=== PATIENT | male | born 1960 | race Caucasian/White ===

== ENCOUNTER → 2019-04-05 11:11 | Outpatient (CLI) | payer OTHER, MEDICAID, SELFPAY ==
--- NOTE | 2019-04-05 11:14 | DI.RAD.S_ITS ---
PROCEDURE: XR ANKLE LT MIN 3V INDICATIONS: L ANKLE SPRAIN TECHNIQUE: 3 views of the ankle were acquired. COMPARISON: [facility], CR, XR ANKLE RT MIN 3V, 04/05/2019, 11:21. FINDINGS: Bones: No fractures or dislocations. Ankle mortise is normally aligned. No suspicious bony lesions. Tibiotalar degenerative spurring. 1 mm calcific density projects in the medial aspect of the tibiotalar joint however only seen on one view. Technically cannot exclude small loose body Soft tissues: No tibiotalar joint effusion. Achilles tendon appears normal. Scattered vascular calcifications IMPRESSION: No fracture. If the patient's symptoms do not improve recommend followup radiographs in 10 days to assess for healing sclerosis/occult injury. Dictated by: Ren Berrios M.D. on 04/05/2019 at 12:21 Approved by: Ren Berrios M.D. on 04/05/2019 at 12:23
--- NOTE | 2019-04-05 11:14 | DI.RAD.S_ITS ---
PROCEDURE: XR ANKLE RT MIN 3V INDICATIONS: L ANKLE SPRAIN TECHNIQUE: 3 views of the ankle were acquired. COMPARISON: [facility], CR, XR ANKLE LT MIN 3V, 04/05/2019, 11:21. FINDINGS: Bones: No fractures or dislocations. Ankle mortise is normally aligned. No suspicious bony lesions. Soft tissues: No tibiotalar joint effusion. Achilles tendon appears normal. IMPRESSION: Negative right ankle Dictated by: Ren Berrios M.D. on 04/05/2019 at 12:19 Approved by: Ren Berrios M.D. on 04/05/2019 at 12:21
== END ==
PROVIDERS: Visit Provider Physician Assistant
DX: S93.402A Sprain of unspecified ligament of left ankle, initial encounter (principal)
CPT/HCPCS: 73610

== ENCOUNTER → 2019-04-22 10:35 | Outpatient (CLI) | payer OTHER, MEDICAID, SELFPAY ==
--- NOTE | 2019-04-22 | DI.CT.S_ITS ---
PROCEDURE: CT LE LT W CON INDICATIONS: Unspecified sprain of left foot, initial encounter TECHNIQUE: Noncontrast 1-1.5 mm axial sections acquired from above the tibiotalar joint to the bottom of the calcaneus, with coronal and sagittal reformats. COMPARISON: [facility] [place], CR, XR ANKLE 3+ VIEWS LEFT, 04/14/2019, 14:20. [facility] [place], CR, XR FOOT 1 OR 2 VIEWS LEFT, 04/14/2019, 14:43. FINDINGS: Image quality: Excellent. Bones: No fracture or focal osseous destruction is seen. There is mild first MTP degeneration. Marginal lucency is present at the first metatarsal head raising possibility of erosion although technically nonspecific. The hallux sesamoids appear grossly normal. There is anatomic alignment. Tibiotalar and midfoot degenerative spurring and subchondral sclerosis. Soft tissues: Scattered vascular calcifications incidentally noted. The visualized flexor and extensor tendons are unremarkable. There is mild hindfoot subcutaneous stranding/swelling. IMPRESSION: No fracture. If the patient's pain or other symptoms persist, consider further evaluation with MRI Diffuse degenerative changes as above. Dictated by: Ren Berrios M.D. on 04/22/2019 at 13:10 Approved by: Ren Berrios M.D. on 04/22/2019 at 13:15
== END ==
PROVIDERS: PCP Orthopaedic Surgery Foot and Ankle Surgery; Visit Provider Orthopaedic Surgery Foot and Ankle Surgery
DX: S93.602A Unspecified sprain of left foot, initial encounter (principal); M19.072 Primary osteoarthritis, left ankle and foot
CPT/HCPCS: 73700

== ENCOUNTER → 2019-06-30 08:34 | Outpatient (CLI) | payer OTHER, MEDICAID, SELFPAY ==
--- NOTE | 2019-06-30 | DI.MRI.S_ITS ---
PROCEDURE: MR ANKLE LT WO CON INDICATIONS: Stress fracture, left foot, initial encounter for TECHNIQUE: Noncontrast sagittal T1 spin echo and T2 fast spin echo with fat saturation, axial proton density fast spin echo and T2 fast spin echo with fat saturation, coronal T1 spin echo and T2 fast spin echo with fat saturation through the ankle/hindfoot. COMPARISON: [facility], CT, CT LE LT WO CON, 04/22/2019, 10:43. [facility], RG, ANKLE MIN 3VW (LT), 06/17/2019, 9:56. FINDINGS: Image quality: Excellent. Bones and joints: No discrete fracture line. There is marrow edema within the anterior tibial plafond as well as the talar head and neck, and cuboid. However this could be chronic given the associated degenerative changes, technically age-indeterminate. No hindfoot coalitions. No osteochondral injuries of the talar dome. Tibiotalar and subtalar joint effusions. Medial structures: The posterior tibialis, flexor digitorum longus, and flexor hallucis longus tendons are intact. Mild fluid adjacent to the posterior tibialis tendon in keeping with low-grade tenosynovitis. The posterior tibial neurovascular bundle appears normal within the tarsal tunnel, without extrinsic mass effect. The deep layer (anterior and posterior tibiotalar ligaments) and superficial layer (tibionavicular, tibiospring, and tibiocalcaneal ligaments) of the deltoid ligament appear normal. The spring ligament components (superomedial calcaneonavicular, medioplantar oblique calcaneonavicular, and inferoplantar longitudinal ligaments) are intact. Lateral structures: The anterior talofibular, calcaneofibular, and posterior talofibular ligaments all appear thickened with intrasubstance signal change and mild T2 hyperintensity. There is minimal adjacent soft tissue edema and this could represent a subacute or acute low-grade sprain. More superiorly, the anterior and posterior tibiofibular ligaments appear intact, as is the intermalleolar ligament. The tibiofibular syndesmosis is normal in width at 2 mm or less. The peroneus longus and brevis tendons demonstrate normal location and morphology. Adjacent bony peroneal tubercle and retrotrochlear prominence are normal in size. There is marked diffuse heterogeneous signal change within the sinus tarsi, with loss of the normal fat signal intensity and T2 hyperintense appearance. Anterior structures: The tibialis anterior, extensor hallucis longus, and extensor digitorum longus tendons appear intact. The dorsal talonavicular ligament appears intact. Posterior and plantar structures: Achilles tendon appears grossly intact. There is mild medial band plantar fasciitis. IMPRESSION: Sprain of the anterior talofibular, calcaneofibular and posterior talofibular ligaments. Marked signal change involving the sinus tarsi, suggesting sinus tarsi syndrome especially if there is clinical evidence of lateral instability. Tibiotalar and subtalar joint effusions. Mild medial band plantar fasciitis. Mild posterior tibialis tenosynovitis. Scattered areas of marrow edema throughout the hindfoot as detailed above. This is suspected to be chronic/reactive to degenerative changes however cannot exclude mild marrow contusion. No discrete fracture line identified. Dictated by: Ren Berrios M.D. on 06/30/2019 at 10:05 Approved by: Ren Berrios M.D. on 06/30/2019 at 10:13
== END ==
PROVIDERS: PCP Orthopaedic Surgery Foot and Ankle Surgery; Visit Provider Orthopaedic Surgery Foot and Ankle Surgery
DX: M84.375A Stress fracture, left foot, initial encounter for fracture (principal); S93.492A Sprain of other ligament of left ankle, initial encounter; S93.412A Sprain of calcaneofibular ligament of left ankle, initial encounter; M25.472 Effusion, left ankle; M72.2 Plantar fascial fibromatosis; M65.862 Other synovitis and tenosynovitis, left lower leg
CPT/HCPCS: 73721

== ENCOUNTER → 2019-08-01 10:27 | Outpatient (CLI) | payer OTHER, MEDICAID, SELFPAY ==
--- NOTE | 2019-08-01 10:29 | DI.RAD.S_ITS ---
PROCEDURE: XR FOOT RT MIN 3V INDICATIONS: R foot pain TECHNIQUE: 3 views of the foot were acquired. COMPARISON: None. FINDINGS: Bones: Moderate hallux valgus is seen. Osteoarthritic changes are noted in first MTP joint and first through fifth interphalangeal joints. No gross acute fractures or dislocations. No suspicious bony lesions. Soft tissues: No tibiotalar joint effusion. Achilles tendon appears normal. 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 No gross acute fracture or dislocation. No suspicious bony lesion. Dictated by: Geraldo Brock M.D. on 08/01/2019 at 11:07 Approved by: Geraldo Brock M.D. on 08/01/2019 at 11:09
== END ==
PROVIDERS: PCP Orthopaedic Surgery Foot and Ankle Surgery; Visit Provider Physician Assistant
DX: M79.671 Pain in right foot (principal); M20.11 Hallux valgus (acquired), right foot; M19.071 Primary osteoarthritis, right ankle and foot
CPT/HCPCS: 73630

== ENCOUNTER 2022-04-28 09:34 | Emergency (ER) | payer OTHER, SELFPAY ==
[2022-04-28 10:12] VITALS: BP 194/118; PULSE 84; RESP 18; TEMP 36.5; O2SAT 100; BMI 27.1
--- NOTE | 2022-04-28 10:19 | DI.RAD.S_ITS ---
PROCEDURE: XR SHOULDER LT MIN 2V INDICATIONS: Left shoulder injury TECHNIQUE: 3 views of the shoulder were acquired. COMPARISON: None. FINDINGS: Bones: No fractures or dislocations. No suspicious bony lesions. Visualized ribs appear intact. Soft tissues: No suspicious soft tissue calcifications. IMPRESSION: No visualized acute fracture or dislocation. However, if clinical concern and/or pain persist, short interval imaging followup in 7-10 days is recommended, as occult injury cannot be definitively excluded. Dictated by: April Odonnell M.D. on 04/28/2022 at 11:15 Approved by: April Odonnell M.D. on 04/28/2022 at 11:16
--- NOTE | 2022-04-28 10:19 | DI.RAD.S_ITS ---
PROCEDURE: XR LUMBAR SPINE 2-3V INDICATIONS: suspected back injury TECHNIQUE: 3 views of the lumbar spine were acquired. COMPARISON: None. FINDINGS: Bones: 5 [id number] vertebrae are present. There is grade 1 retrolisthesis of L4 on L5 measuring 6 mm with 5 mm retrolisthesis L5 on S1 as well as L3 on L4. Severe disc and foraminal narrowing are noted at L4-5 and L5-S1. No vertebral body compression fractures. No suspicious bony lesions. Soft tissues: Overlying bowel gas pattern is normal. No suspicious soft tissue calcifications. IMPRESSION: Degenerative changes most notable at L4-5, L5-S1. Dictated by: April Odonnell M.D. on 04/28/2022 at 11:16 Approved by: April Odonnell M.D. on 04/28/2022 at 11:17
[2022-04-28 11:50] VITALS: O2SAT 96
[2022-04-28 11:51] VITALS: BP 146/97; PULSE 82; O2SAT 99
[2022-04-28 12:00] VITALS: PULSE 87; O2SAT 99
[2022-04-28 12:30] VITALS: PULSE 81; O2SAT 98
[2022-04-28 13:00] VITALS: PULSE 86; O2SAT 98
--- NOTE | 2022-04-28 13:06 | ED.BACK ---
HPI - Back Pain/Injury <Amari Garcia PA-C - Last Filed: 04/28/22 20:12> General Chief Complaint: Back Pain/Injury Stated Complaint: Back and lt shoulder pain after fall Time Seen by Provider: 04/28/22 12:08 Source: patient History of Present Illness HPI Narrative: Patient is a 61-year-old male who presents to the emergency department for evaluation of low back pain and left shoulder pain. Patient explains that approximately 3 weeks ago he fell while at work pushing a shopping cart, stating that he slipped and fell on his left outstretched arm. He states that since that time he has been experiencing left shoulder pain that is exacerbated with movement and low back pain. Of note, patient denies trauma or injury elsewhere. Additionally, he denies hitting his head as a result of the fall. He denies fever, chills, chest pain, cough, shortness of breath, nausea, vomiting, diarrhea, constipation, abdominal pain, dysuria, hematuria, numbness and tingling in the upper lower extremities, or any other concerning symptoms. No further concerns were voiced at this time. Related Data Previous Rx's Medication Instructions Recorded cyclobenzaprine 7.5 mg tablet 7.5 mg PO TID PRN muscle spasm 10 04/28/22 days #30 tabs Allergies Allergy/AdvReac Type Severity Reaction Status Date / Time No Known Drug Allergies Allergy Verified 08/02/19 11:03 Review of Systems <Amari Garcia PA-C - Last Filed: 04/28/22 20:12> Constitutional Constitutional: Denies chills, Denies fatigue, Denies fever(s), Denies frequent falls, Denies lethargy and Denies weakness ENT Ears, Nose, Mouth, and Throat: Denies neck pain Cardiovascular Cardiovascular: Denies chest pain, Denies irregular heart rhythm, Denies lightheadedness, Denies palpitations, Denies dyspnea, Denies dyspnea on exertion and Denies orthopnea Respiratory Respiratory: Denies dyspnea and Denies dyspnea on exertion Gastrointestinal Gastrointestinal: Denies abdominal pain, Denies change in bowel habits, Denies diarrhea, Denies nausea and Denies vomiting Genitourinary Genitourinary: Denies hematuria, Denies flank pain, Denies urinary incontinence and Denies urinary urgency Musculoskeletal Musculoskeletal: Reports back pain, Reports arthralgias (Left shoulder), Denies joint swelling, Denies muscle weakness, Denies neck pain, Denies numbness and Denies tingling Integumentary/Breasts Skin/Breast: Denies pruritus, Denies erythema, Denies rash and Denies wounds Neurologic Neurologic: Denies frequent falls, Denies numbness, Denies tingling and Denies weakness Endocrine Endocrine: Denies fatigue and Denies palpitations Patient History <Amari Garcia PA-C - Last Filed: 04/28/22 20:12> Social History Smoking Status: Never smoker Smokeless tobacco user: chewing tobacco Smoking Status: Never smoker tobacco type: smokeless tobacco Substance Use Type: marijuana Exam <Amari Garcia PA-C - Last Filed: 04/28/22 20:12> Narrative Exam Narrative: GENERAL: 61 year old patient appears stated age. Well-developed patient, in no acute distress. HEAD: Atraumatic. Normocephalic. EYES: Pupils equal round and reactive. Extraocular motions intact. No scleral icterus. No injection or drainage. ENT: Nose without bleeding, purulent drainage. Throat without erythema, tonsillar hypertrophy or exudate. Airway patent. NECK: Trachea midline. Non tender CARDIOVASCULAR: Regular rate and rhythm without murmurs, gallops, or rubs. RESPIRATORY: Clear to auscultation. Breath sounds equal bilaterally. No wheezes, rales, or rhonchi. GASTROINTESTINAL: Abdomen soft, non-tender, nondistended. EXTREMITIES: No edema or gross deformity. Tenderness to palpation appreciated generally about the left shoulder with no significant overlying ecchymosis or erythema. Tenderness to palpation appreciated throughout the bilateral paraspinal muscles in the area of L4-L5 and L5-S1. No crepitance appreciated when palpating the back. Good sensation light touch appreciated throughout the bilateral upper and lower extremities. Gross motor function intact throughout the bilateral upper and lower extremities. BACK: Nontender without deformity or crepitance. No flank tenderness. NEURO: AOx3. SKIN: No rash or erythema of visible areas Initial Vital Signs Initial Vital Signs: Vital Signs Temperature 97.7 F 04/28/22 10:12 Pulse Rate 84 04/28/22 10:12 Respiratory Rate 18 04/28/22 10:12 Blood Pressure 194/118 H 06/13/22 10:12 Pulse Oximetry 100 04/28/22 10:12 Oxygen Delivery Method 04/28/22 10:12 <Yeny Kim DO - Last Filed: 05/04/22 12:51> Initial Vital Signs Initial Vital Signs: Vital Signs Temperature 97.7 F 04/28/22 10:12 Pulse Rate 84 04/28/22 10:12 Respiratory Rate 18 04/28/22 10:12 Blood Pressure 194/118 H 04/28/22 10:12 Pulse Oximetry 100 04/28/22 10:12 Oxygen Delivery Method 04/28/22 10:12 Course <Amari Garcia PA-C - Last Filed: 04/28/22 20:12> Course Course Narrative: X-ray of left shoulder and lumbar spine obtained. No acute abnormalities discovered. Orders Ordered: ED Orders 04/28/22 10:19 XR lumbar spine 2-3V Stat XR shoulder LT min 2V Stat Vital Signs Vital signs: Vital Signs - 8 hr 04/28/22 12:30 04/28/22 13:00 Pulse Rate 81 86 Pulse Oximetry 98 98 <Yeny Kim DO - Last Filed: 05/04/22 12:51> Orders Ordered: ED Orders 04/28/22 10:19 XR lumbar spine 2-3V Stat XR shoulder LT min 2V Stat Vital Signs Vital signs: Vital Signs - 8 hr 04/28/22 12:30 04/28/22 13:00 Pulse Rate 81 86 Pulse Oximetry 98 98 MDM - Back Pain/Injury <Amari Garcia PA-C - Last Filed: 04/28/22 20:12> Imaging Data Extremity x-ray #1: Radiologist's Impression: PROCEDURE:? XR SHOULDER LT MIN 2V ? INDICATIONS:? Left shoulder injury ? TECHNIQUE:? 3 views of the shoulder were acquired.? ? COMPARISON:? None. ? FINDINGS:? ? Bones:? No fractures or dislocations.? No suspicious bony lesions.? Visualized ribs appear intact.? ? Soft tissues:? No suspicious soft tissue calcifications.? ? IMPRESSION:? No visualized acute fracture or dislocation. However, if clinical concern and/or pain persist, short interval imaging followup in 7-10 days is recommended, as occult injury cannot be definitively excluded. ? ? Dictated by: April Odonnell M.D. on 04/28/2022 at 11:15 ? ? Approved by: April Odonnell M.D. on 04/28/2022 at 11:16 Lumbar spine x-ray: Radiologist's Impression: PROCEDURE:? XR LUMBAR SPINE 2-3V ? INDICATIONS:? suspected back injury ? TECHNIQUE:? 3 views of the lumbar spine were acquired.? ? COMPARISON:? None. ? FINDINGS:? ? Bones:? 5 [id number] vertebrae are present.? There is grade 1 retrolisthesis of L4 on L5 measuring 6 mm with 5 mm retrolisthesis L5 on S1 as well as L3 on L4.? Severe disc and foraminal narrowing are noted at L4-5 and L5-S1.? No vertebral body compression fractures.? No suspicious bony lesions.? ? Soft tissues:? Overlying bowel gas pattern is normal.? No suspicious soft tissue calcifications.? ? ? IMPRESSION:? Degenerative changes most notable at L4-5, L5-S1. ? ? Dictated by: April Odonnell M.D. on 04/28/2022 at 11:16 ? ? Approved by: April Odonnell M.D. on 04/28/2022 at 11:17 ? MDM Narrative Medical decision making narrative: Differential diagnosis to consider but not limited to fracture versus dislocation versus sprain versus strain. Discussed results of x-ray imaging with patient and informed him that no acute bony abnormality was identified. I did discuss the findings degenerative changes in the lumbar spine. I informed the patient I would be setting up a prescription for muscle relaxer to help alleviate his discomfort. Additionally, I informed the patient of be setting up a referral for orthopedic follow-up. Patient expresses understanding and agrees to plan. Strict return precautions were discussed prior to discharge. Discharge Plan Departure Patient Disposition: Home Clinical Impression: Left shoulder pain, Low back pain Instructions: DI for Low Back Pain Activity Restrictions/Additional Instructions: *You have been diagnosed with left shoulder pain, low back pain *What to do: *Please continue to take your regular medications as directed. [X] New medication prescriptions sent to your pharmacy: [facility] [ ] New medication written as a paper prescription [ ] No new medications given You were evaluated in the emergency department today for left shoulder pain and low back pain. X-ray imaging obtained in the emergency department today did not show signs of acute bony abnormalities such as fracture or dislocation. There were degenerative changes noted in your lumbar spine however. I have set up a referral for orthopedic follow-up, they should be reaching out to you to schedule an appointment. Additionally, I have sent a prescription to your preferred pharmacy for muscle relaxer medications to help alleviate discomfort. Please follow-up with the primary care provider within the next few days for further evaluation and management. Please do not hesitate to return to the emergency department if you experience worsening pain, fever, loss of sensation in the upper extremities, or any other concerning symptoms. *Please follow up with your primary care provider in 2-3 days, call for an appointment. Let them know you were seen in the Emergency Department and that we ask that you be seen in follow up. We will electronically transmit a record of today's note if your PCP is in our system *If you do not have a primary care provider please contact the [facility] Resource line at [phone]. They will ask some questions about your medical history and help get you set up with a doctor in the community. *Return to Emergency Department if you should have any new, worsening or concerning symptoms, such as fever greater than 101 F, shaking chills, worsening pain, persistent vomiting or other bothersome symptoms. Prescriptions: New cyclobenzaprine 7.5 mg tablet 7.5 mg PO TID PRN (Reason: muscle spasm) 10 Days Qty: 30 0RF Referrals: Chasity Verdugo MD [Primary Care Provider] - Josh Ennis MD [Physician] - 5-7 days Visit Report Forms: Patient Portal/API <Yeny Kim DO - Last Filed: 05/04/22 12:51> Cosign ED Attending Lindaature Attestation: I was immediately available in the department for consultation. Documentation has been reviewed.
== END 2022-04-28 13:19 | disposition home or self-care (01) ==
PROVIDERS: Emergency Provider Physician Assistant; PCP Orthopaedic Surgery Foot and Ankle Surgery
DX: M25.512 Pain in left shoulder (principal); M54.50 Low back pain, unspecified; W19.XXXA Unspecified fall, initial encounter; Y99.0 Civilian activity done for income or pay
CPT/HCPCS: 72100; 73030; 99281; 99283

== ENCOUNTER → 2022-05-21 13:41 | Outpatient (CLI) | payer OTHER, SELFPAY ==
--- NOTE | 2022-05-21 13:46 | DI.MRI.S_ITS ---
PROCEDURE: MR SHOULDER LT WO CON INDICATIONS: Left rotator cuff tear TECHNIQUE: Noncontrast oblique coronal T2 fast spin echo with fat saturation, oblique sagittal T1 spin echo and T2 fast spin echo with fat saturation, axial T1 spin echo and T2 fast spin echo with fat saturation through the shoulder. COMPARISON: [facility], CR, XR SHOULDER LT MIN 2V, 04/28/2022, 10:28. FINDINGS: Image quality: Excellent. Rotator cuff: There is partial-thickness tear of the distal supraspinatus and infraspinatus tendons and moderate tendinosis. There is moderate tendinosis of the subscapularis tendon. Sagittal images demonstrate no rotator cuff muscle atrophy. Bones and bursae: No fractures. There is bone marrow edema in the distal clavicle and acromion, probably secondary to contusion or reactive edema. Severe acromioclavicular and moderate glenohumeral joint degeneration. The acromion demonstrates conventional anatomy, without an os acromiale. There is a small amount of subcoracoid bursal fluid suggesting mild bursitis. Capsule and soft tissues: Degenerative fraying of the anterior and inferior labrum The long head of the biceps tendon demonstrates normal location and morphology. The rotator interval appears normal, without fibrosis. The coracohumeral ligament is normal in thickness. IMPRESSION: 1. Partial-thickness tear and moderate tendinosis of the distal supraspinatus and infraspinatus tendons. 2. Moderate tendinosis of the subscapularis tendon. 3. Severe acromioclavicular joint degeneration. There is marrow edema in the distal clavicle and acromion, either secondary to bone contusions or reactive edema from arthritic change. 4. Suspect mild subcoracoid bursitis. 5. Degenerative anterior and inferior labral fraying. Dictated by: Joe Nava M.D. on 05/21/2022 at 17:37 Approved by: Joe Nava M.D. on 05/22/2022 at 10:21
--- NOTE | 2022-05-21 13:46 | DI.MRI.S_ITS ---
PROCEDURE: MR LUMBAR SPINE WO CON INDICATIONS: Low back pain, unspecified TECHNIQUE: Noncontrast sagittal T1 spin echo and T2 fast echo, sagittal STIR, and T2 fast spin echo through the lumbar spine. In cases with scoliosis, additional coronal T2 fast spin echo may be performed. COMPARISON: [facility], CR, XR LUMBAR SPINE 2-3V, 04/28/2022, 10:28. [facility] [place], CR, XR LUMBAR SPINE WITH OBLIQUES, 05/06/2022, 8:30. FINDINGS: Image quality: Excellent. Alignment and Curvature: There is normal bony alignment. Bone Marrow: Modic type 2 reactive endplate changes noted adjacent to the L3-L4, L4-L5 and L5-S1 discs. Small Schmorl's nodes noted in the superior endplate of the L1 and L2 vertebral bodies. Small Schmorl's nodes noted in the inferior endplates of the T12, L1 and L2 vertebral bodies. No acute vertebral body compression fractures. Spinal Cord: Conus medullaris terminates at the L1 level. Visualized cord demonstrates normal signal and size. Paraspinous Soft Tissues: No paravertebral masses. T12-L1: Loss of disc signal. No central stenosis. No neural foraminal narrowing. No neural compression. L1-L2: Loss of disc signal. Mild, diffuse disc bulge. No central stenosis. Mild bilateral neural foraminal narrowing. No neural compression. L2-L3: Loss of disc signal. Mild, diffuse disc bulge. Mild narrowing of the central canal. [id number] right and mild left neural foraminal narrowing. No neural compression. L3-L4: Loss of disc signal. Mild, diffuse disc bulge. Mild bilateral facet hypertrophy. Mild to moderate narrowing of the central canal. Moderate right and moderate to severe left neural foraminal narrowing with slight compression of the exiting left L4 nerve root. Fissures noted in the annulus. L4-L5: Loss of disc signal and height. Mild, diffuse disc bulge. Mild bilateral facet hypertrophy. No central stenosis. Moderate bilateral neural foraminal narrowing. No neural compression. L5-S1: Loss of disc signal and height. Mild, diffuse disc bulge. Moderate bilateral facet hypertrophy. No central stenosis. Moderate bilateral neural foraminal narrowing. No neural compression. IMPRESSION: 1. Multilevel degenerative disc disease. 2. Multilevel facet arthropathy. 3. No severe central canal narrowing. 4. Moderate to severe left L3-L4 neural foraminal narrowing with slight compression of the exiting left L4 nerve root. Dictated by: Ary Kc MD, PhD on 05/21/2022 at 17:48 Approved by: Ary Kc MD, PhD on 05/21/2022 at 17:52
== END ==
PROVIDERS: Referring Provider Physical Medicine & Rehabilitation Pain Medicine; Visit Provider Physical Medicine & Rehabilitation Pain Medicine
DX: S46.012A Strain of muscle(s) and tendon(s) of the rotator cuff of left shoulder, initial encounter (principal); M19.012 Primary osteoarthritis, left shoulder; M54.50 Low back pain, unspecified; M51.36 Other intervertebral disc degeneration, lumbar region; M51.37 Other intervertebral disc degeneration, lumbosacral region; M47.816 Spondylosis without myelopathy or radiculopathy, lumbar region; M47.817 Spondylosis without myelopathy or radiculopathy, lumbosacral region; M48.061 Spinal stenosis, lumbar region without neurogenic claudication; X58.XXXA Exposure to other specified factors, initial encounter
CPT/HCPCS: 72148; 73221

== ENCOUNTER 2024-04-06 15:05 | Emergency (ER) | payer OTHER, MEDICAID, SELFPAY ==
[2024-04-06 15:20] VITALS: BP 177/103; PULSE 80; RESP 12; TEMP 36.9; O2SAT 98; BMI 28.4
--- NOTE | 2024-04-06 15:24 | DI.RAD.S_ITS ---
PROCEDURE: XR SHOULDER RT MIN 2V INDICATIONS: injury TECHNIQUE: 3 views of the shoulder were acquired. COMPARISON: None. FINDINGS: Bones: No fractures or dislocations. Moderate acromioclavicular joint osteoarthritis is seen. No suspicious bony lesions. Visualized ribs appear intact. Soft tissues: No suspicious soft tissue calcifications. IMPRESSION: No shoulder fracture or dislocation. Moderate acromioclavicular joint osteoarthritis. Dictated by: Geraldo Brock M.D. on 04/06/2024 at 16:08 Approved by: Geraldo Brock M.D. on 04/06/2024 at 16:08
--- NOTE | 2024-04-06 16:33 | ED_ITS ---
HPI - Extremity Injury (Upper) <Olivia Hebert PA-C - Last Filed: 04/06/24 20:19> General Chief Complaint: Extremity Injury, Upper Stated Complaint: R Shoulder Pain Time Seen by Provider: 04/06/24 16:33 Source: patient Mode of arrival: Family Vehicle History of Present Illness HPI narrative: 63-year-old male with a history of left shoulder rotator cuff repair presents with concern for severe right shoulder pain with reduced range of motion. Patient states that 4 days ago he was pulling the cord on a gas powered blower at home, he says the cord was extremely loose unexpectedly and as he yanked back on it there was no resistance and then all of a sudden there was a lot of resistance. Said he felt a popping and pulling sensation in the front of his shoulder and then as if something was traveling down his arm towards his elbow and then a vibrating sensation just above his elbow. Since that time he has had significant pain with any movement of his arm shoulder or any lifting activity. He is able to move his wrist normally and can move his elbow but has a lot of pain in the biceps the front of his shoulder and behind his shoulder near his scapula in the back. He states this feels very similar to when he injured his rotator cuff on his left shoulder. He has tried [id number] medications rest and ice at home but the pain has gradually been worsening over the last 4 days and his mobility has not improved at all so he came in for further evaluation. He denies any other complaints or concerns Related Data Previous Rx's Medication Instructions Recorded baclofen 10 mg tablet 10 mg PO TID 7 days #21 tabs 04/06/24 Allergies Allergy/AdvReac Type Severity Reaction Status Date / Time No Known Drug Allergies Allergy Verified 08/02/19 11:03 Review of Systems <Olivia Hebert PA-C - Last Filed: 04/06/24 20:19> Review of Systems Narrative: See HPI Patient History <Olivia Hebert PA-C - Last Filed: 04/06/24 20:19> Social History Smoking Status: Never smoker Smokeless tobacco user: chewing tobacco Smoking Status: Never smoker tobacco type: smokeless tobacco alcohol intake frequency: 0-2 drinks per day Substance Use Type: marijuana Exam <Olivia Hebert PA-C - Last Filed: 04/06/24 20:19> Narrative Exam Narrative: GENERAL: 63 year old patient appears stated age. Well-developed patient, in mild distress. HEAD: Atraumatic. Normocephalic. EYES: Pupils equal round and reactive. Extraocular motions intact. No scleral icterus. No injection or drainage. ENT: Nose without bleeding, purulent drainage. Airway patent. NECK: Trachea midline. CARDIOVASCULAR: Regular rate and rhythm without murmurs, gallops, or rubs. RESPIRATORY: Clear to auscultation. Breath sounds equal bilaterally. No wheezes, rales, or rhonchi. EXTREMITIES: No edema or joint tenderness. BACK: Patient is very tender over the supraspinatus infraspinatus and teres major/minor; he also has tenderness over his right biceps and anterior deltoid. Significant tenderness over the biceps tendon insertion. Tenderness over the lateral pectoralis muscle, with muscle spasming. Comparison of bilateral arms with flexion appears equal on both sides. No obvious biceps tendon rupture. Strong pulses bilaterally radial, patient is able to supinate and pronate with some pain but flexion at the elbow, abduction and extension of the shoulder are significantly reduced 2nd to pain. Passive motion is also painful but less so positive scarf sign. Nontender without deformity or crepitance. No flank tenderness. NEURO: AOx3. SKIN: No rash or erythema of visible areas Initial Vital Signs Initial Vital Signs: Vital Signs Temperature 98.5 F 04/06/24 15:20 Pulse Rate 80 04/06/24 15:20 Respiratory Rate 12 04/06/24 15:20 Blood Pressure 177/103 H 04/06/24 15:20 Pulse Oximetry 98 04/06/24 15:20 Oxygen Delivery Method Room Air 04/06/24 15:20 <Yeny Kim DO - Last Filed: 04/09/24 04:47> Initial Vital Signs Initial Vital Signs: Vital Signs Temperature 98.5 F 04/06/24 15:20 Pulse Rate 80 04/06/24 15:20 Respiratory Rate 12 04/06/24 15:20 Blood Pressure 177/103 H 04/06/24 15:20 Pulse Oximetry 98 04/06/24 15:20 Oxygen Delivery Method Room Air 04/06/24 15:20 Course <Olivia Hebert PA-C - Last Filed: 04/06/24 20:19> Orders Ordered: Discontinued Medications Acetaminophen (Acetaminophen 325 Mg Tablet) 975 mg PO NOW ONE Stop: 04/06/24 17:08 Last Admin: 04/06/24 17:16 Dose: 975 mg Documented By: IAN Ketorolac Tromethamine (Ketorolac 30 Mg/Ml Vial) 30 mg IM NOW ONE Stop: 04/06/24 17:08 Last Admin: 04/06/24 17:15 Dose: 30 mg Documented By: IAN Vital Signs Vital signs: Vital Signs - 8 hr 04/06/24 15:20 04/06/24 17:12 04/06/24 18:01 Temperature 98.5 F 98 F Pulse Rate 80 63 77 Respiratory Rate 12 16 18 Blood Pressure 177/103 H 128/69 175/106 H Pulse Oximetry 98 96 100 Oxygen Delivery Method Room Air Room Air <Yeny Kim DO - Last Filed: 04/09/24 04:47> Orders Ordered: Discontinued Medications Acetaminophen (Acetaminophen 325 Mg Tablet) 975 mg PO NOW ONE Stop: 04/06/24 17:08 Last Admin: 04/06/24 17:16 Dose: 975 mg Documented By: IAN Ketorolac Tromethamine (Ketorolac 30 Mg/Ml Vial) 30 mg IM NOW ONE Stop: 04/06/24 17:08 Last Admin: 04/06/24 17:15 Dose: 30 mg Documented By: IAN Vital Signs Vital signs: Vital Signs - 8 hr 04/06/24 15:20 04/06/24 17:12 04/06/24 18:01 Temperature 98.5 F 98 F Pulse Rate 80 63 77 Respiratory Rate 12 16 18 Blood Pressure 177/103 H 128/69 175/106 H Pulse Oximetry 98 96 100 Oxygen Delivery Method Room Air Room Air MDM - Extremity Injury (Upper) <Olivia Hebert PA-C - Last Filed: 04/06/24 20:19> Differential Diagnosis Differential diagnosis: Likely dislocation of shoulder and other (Shoulder sprain, rotator cuff injury) Medical Records Attestation: I reviewed the patient's medical records. Imaging Data Extremity x-ray #1: My Impression: Agree with Radiology interpretation Radiologist's Impression: [address] [address] XRay Report Signed Patient: Francisco Galeano MR#: [id number] : 1960 Acct:[id number] Age/Sex: 63 / M Date of Service: 04/06/24 Loc: ED Accession Number: [id number] Procedure: XR shoulder RT min 2V Ordering Provider: Yeny Kim D.O. PROCEDURE: XR SHOULDER RT MIN 2V INDICATIONS: injury TECHNIQUE: 3 views of the shoulder were acquired. COMPARISON: None. FINDINGS: Bones: No fractures or dislocations. Moderate acromioclavicular joint osteoarthritis is seen. No suspicious bony lesions. Visualized ribs appear intact. Soft tissues: No suspicious soft tissue calcifications. IMPRESSION: No shoulder fracture or dislocation. Moderate acromioclavicular joint osteoarthritis. Dictated by: Geraldo Brock M.D. on 04/06/2024 at 16:08 Approved by: Geraldo Brock M.D. on 04/06/2024 at 16:08 [facility] Narrative Medical decision making narrative: 63-year-old male presenting with concern for right shoulder injury 4 days ago gradually worsening, exam is most consistent with a rotator cuff injury, possibly biceps tendon involvement. X-rays negative for abnormality except for acromioclavicular arthritic changes. Patient is advised to follow up closely with Orthopedics, he has previously seen Dr. Ennis, today's on-call orthopedic doctor Kalpana is also included in patient's paperwork. Short course prescription of pain medication, muscle relaxer as patient has some significantly tight muscles around the shoulder. Sling placed today as well. Labs were not obtained I have low suspicion for cardiovascular infectious etiology. Return precautions provided, follow-up plan discussed, all questions answered. Discharge Plan Departure Patient Disposition: Home Clinical Impression: Muscle spasm of shoulder region Rotator cuff (capsule) sprain Qualifiers: Encounter type: initial encounter Laterality: right Qualified Code(s): S43.421A - Sprain of right rotator cuff capsule, initial encounter Activity Restrictions/Additional Instructions: *You have been diagnosed with [rotator cuff injury/shoulder sprain] *What to do: *Please continue to take your regular medications as directed. [2 ] New medication prescriptions sent to your pharmacy: [Baclofen, oxycodone] [ ] New medication written as a paper prescription [ ] No new medications given *Please follow up with your primary care provider in 2-3 days, call for an a ppointment. Let them know you were seen in the Emergency Department and that we ask that you be seen in follow up. We will electronically transmit a record of today's note if your PCP is in our system. You injured her right shoulder 4 days ago when pulling on power cord gas powered equipment. Based on your exam today you have a rotator cuff injury, I am somewhat suspicious he may have also injured her biceps tendon/muscle however it does not appear to be a biceps tendon rupture/detachment based on exam. The x-ray of your shoulder looked okay you do have some joint osteoarthritis wear your shoulder connects with the end of your collar bone at the top of her shoulder. This does not explain all of your symptoms and pain, but it could be contributing. I would like you to follow up closely with Orthopedics, have included the name and contact info of our on-call doctor of the day today but you have also seen Dr. Ennis in the past and it may make sense to go back to him since he is already familiar with you. I prescribed a muscle relaxer as you have some muscle spasming going on around her shoulder and a few days of stronger pain medicine but you should only use this if needed and Tylenol and ibuprofen is not enough. Please be cautious about taking this and the muscle relaxer together and about operating any equipment or driving after taking these. We placed you in a sling today I recommend you use this the majority of the time when you are up and about as it should provide some good support for your arm and help her muscles to relax. I hope you feel better soon. *If you do not have a primary care provider please contact the [facility] Resource line at [phone]. They will ask some questions about your medical history and help get you set up with a doctor in the community. *Return to Emergency Department if you should have any new, worsening or concerning symptoms, such as [fever greater than 101 F, shaking chills, worsening pain, persistent vomiting or other bothersome symptoms] Prescriptions: New baclofen 10 mg tablet 10 mg PO TID 7 Days Qty: 21 0RF Referrals: Gallo Acuna MD [Physician] - Josh Ennis MD [Physician] - Stand Alone Forms: Patient Portal/API ED Sign-out <Yeny C Mank, DO - Last Filed: 04/09/24 04:47> Cosign ED Attending Lindaature Attestation: I was immediately available in the department for consultation.
[2024-04-06 17:12] VITALS: BP 128/69; PULSE 63; RESP 16; TEMP 36.6; O2SAT 96
[2024-04-06] MEDS: KETOROLAC 30 MG/ML VIAL IM (17:15)
[2024-04-06] MEDS: ACETAMINOPHEN 325 MG TABLET 975 MG PO (17:16)
[2024-04-06 18:01] VITALS: BP 175/106; PULSE 77; RESP 18; O2SAT 100
== END 2024-04-06 18:02 | disposition home or self-care (01) ==
PROVIDERS: Emergency Provider Student in an Organized Health Care Education/Training Program
DX: S43.421A Sprain of right rotator cuff capsule, initial encounter (principal); X50.0XXA Overexertion from strenuous movement or load, initial encounter; M62.838 Other muscle spasm
CPT/HCPCS: 73030; 96372; 99283; 99284; J1885

== ENCOUNTER → 2024-05-24 15:27 | Outpatient (CLI) | payer OTHER, MEDICAID, SELFPAY ==
--- NOTE | 2024-05-24 | DI.MRI.S_ITS ---
PROCEDURE: MR SHOULDER RT WO CON INDICATIONS: RIGHT SHOULDER PAIN TECHNIQUE: Noncontrast oblique coronal T2 fast spin echo with fat saturation, oblique sagittal T1 spin echo and T2 fast spin echo with fat saturation, axial T1 spin echo and T2 fast spin echo with fat saturation through the shoulder. COMPARISON: [facility], MR, MR SHOULDER LT WO CON, 05/21/2022, 14:57. FINDINGS: Image quality: Excellent. Rotator cuff: There is full-thickness rupture involving distal supraspinatus with up to 3.3 cm medial retraction of torn tendon fibers to the level of acromion. Low-grade articular surface partial-thickness tear involving distal infraspinatus at its insertion on the humeral head is seen extending to musculotendinous junction. Low-grade partial-thickness tear involving superior to mid fibers of distal subscapularis. No full-thickness rotator cuff tendon rupture. Sagittal images demonstrate [id number] supraspinatus muscle atrophy. Bones and bursae: Moderate acromioclavicular joint osteoarthritic changes are seen with joint space narrowing and prominent downward osteophyte formation depressing the musculotendinous junction of supraspinatus. Type 1 acromion, without an os acromiale. Moderate joint effusion and subacromial subdeltoid bursal fluid is seen, no loose bodies. Capsule and soft tissues: Labrum is grossly intact. The long head of the biceps tendon appears thickened intra-articularly extending to its proximal insertion.. The rotator interval appears normal, without fibrosis. The coracohumeral ligament is normal in thickness. IMPRESSION: 1. Full-thickness rupture involving supraspinatus at its insertion on the humeral head with up to 3.3 cm medial retraction of torn tendon fibers to the level of acromion. Low-grade articular surface partial-thickness tear involving distal infraspinatus extending to musculotendinous junction. Low-grade partial-thickness tear involving superior fibers of distal subscapularis. Mild to moderate supraspinatus muscle atrophy. 2. Moderate acromioclavicular joint osteoarthritis. No fracture or dislocation. Moderate joint effusion and subacromial subdeltoid bursal fluid, no loose bodies. 3. No evidence of focal labral tear. 4. Tendinosis and low-grade intrasubstance partial-thickness tear involving proximal intra-articular portion of long head of biceps. Dictated by: Geraldo Brock M.D. on 05/24/2024 at 21:16 Approved by: Geraldo Brock M.D. on 05/24/2024 at 21:34
== END ==
PROVIDERS: Referring Provider Physician Assistant; Visit Provider Physician Assistant
DX: M75.121 Complete rotator cuff tear or rupture of right shoulder, not specified as traumatic (principal); M19.011 Primary osteoarthritis, right shoulder; S46.111A Strain of muscle, fascia and tendon of long head of biceps, right arm, initial encounter
CPT/HCPCS: 73221

== ENCOUNTER → 2024-11-03 11:01 | Outpatient (CLI) | payer OTHER, SELFPAY ==
--- NOTE | 2024-11-03 11:03 | DI.MRI.S_ITS ---
PROCEDURE: MR SHOULDER LT WO CON INDICATIONS: Strain of other muscles, fascia and tendons at amanda TECHNIQUE: Noncontrast oblique coronal T2 fast spin echo with fat saturation, oblique sagittal T1 spin echo and T2 fast spin echo with fat saturation, axial T1 spin echo and T2 fast spin echo with fat saturation through the shoulder. COMPARISON: [facility], MR, MR SHOULDER RT WO CON, 05/24/2024, 15:35. FINDINGS: Image quality: Excellent. Rotator cuff: Status post supraspinatus tendon repair. There is increased T2 hyperintensity within the insertions of the supraspinatus, subscapularis and infraspinatus musculature consistent with tendinopathy. Focal full-thickness tear through the distal subscapularis insertion. Otherwise, the supraspinatus, infraspinatus, and subscapularis tendons appear intact throughout. Sagittal images demonstrate no significant muscle atrophy. Bones and bursae: No bone marrow contusions or fractures. Moderate acromioclavicular joint degeneration with inferior marginal osteophytes causing mass effect on the supraspinatus. The acromion demonstrates conventional anatomy, without an os acromiale. Small volume subcoracoid bursal fluid is present. Capsule and soft tissues: Labrum appears intact. The long head of the biceps tendon demonstrates normal location and morphology. The rotator interval appears normal, without fibrosis. The coracohumeral ligament is normal in thickness. IMPRESSION: 1. Status post tendon repair with diffuse rotator cuff tendinopathy and focal full thickness tear of the distal subscapularis insertion. 2. Subcoracoid bursal effusion. Dictated by: Fahad Huitron M.D. on 11/03/2024 at 18:07 Approved by: Fahad Huitron M.D. on 11/03/2024 at 18:15
== END ==
LOC: MRI 11:02
PROVIDERS: Referring Provider Orthopaedic Surgery; Visit Provider Orthopaedic Surgery
DX: S46.812A Strain of other muscles, fascia and tendons at shoulder and upper arm level, left arm, initial encounter (principal); M25.412 Effusion, left shoulder; M19.012 Primary osteoarthritis, left shoulder
CPT/HCPCS: 73221

== ENCOUNTER → 2025-03-03 08:49 | Outpatient (CLI) | payer OTHER, SELFPAY ==
--- NOTE | 2025-03-03 08:51 | DI.MRI.S_ITS ---
PROCEDURE: MR LUMBAR SPINE WO CON INDICATIONS: PERSISTENT LUMBAR PAIN/ASSESS STENOSIS, LBP TECHNIQUE: Noncontrast sagittal T1 spin echo and T2 fast echo, sagittal STIR, and T2 fast spin echo through the lumbar spine. In cases with scoliosis, additional coronal T2 fast spin echo may be performed. COMPARISON: [facility], MR, MR LUMBAR SPINE WO CON, 05/21/2022, 14:31. FINDINGS: Image quality: Excellent. Alignment and Curvature: There is normal bony alignment. Bone Marrow: Modic type 2 changes associated with prominent Schmorl's nodes at L1-2 and T12-L1. Modic type 2 changes at L4-5 and L5-S1. Modic type 1 changes across prominent Schmorl's nodes at L2-3. Hemangioma in the T11 vertebral body. Spinal Cord: Conus medullaris terminates at the L1 level. Visualized cord demonstrates normal signal and size. Paraspinous Soft Tissues: No paravertebral masses. T12-L1: Disc desiccation, moderate disc height loss. L1-L2: Asymmetric right disc bulge, bilateral facet hypertrophy and ligamentum flavum hypertrophy. There is moderate right neural foraminal narrowing . L2-L3: Asymmetric right foraminal and extraforaminal disc bulge. Facet hypertrophy, ligamentum flavum hypertrophy. Moderate right neural foraminal narrowing. Superimposed left foraminal extrusion without significant foraminal narrowing. L3-L4: Broad-based disc bulge, facet hypertrophy. Mild spinal canal narrowing. Moderate left and severe right neural foraminal narrowing. L4-L5: Broad-based disc bulge, facet hypertrophy. Severe bilateral neural foraminal narrowing. L5-S1: Broad-based disc bulge, facet hypertrophy. Severe bilateral neural foraminal narrowing. IMPRESSION: Moderate to severe, multilevel degenerative disc disease and diffuse facet arthrosis. Findings have progressed since 2021. Of note: Severe neural foraminal narrowing at L3-4, L4-5 and L5-S1. Mild spinal canal narrowing at L3-4. Dictated by: Barrie Mccollum M.D. on 03/03/2025 at 10:25 Approved by: Barrie Mccollum M.D. on 03/03/2025 at 10:34
== END ==
PROVIDERS: PCP Nurse Practitioner Family; Referring Provider Physician Assistant Medical; Visit Provider Physician Assistant Medical
DX: M51.369 Other intervertebral disc degeneration, lumbar region without mention of lumbar back pain or lower extremity pain (principal); M48.061 Spinal stenosis, lumbar region without neurogenic claudication; M47.816 Spondylosis without myelopathy or radiculopathy, lumbar region; M51.379 Other intervertebral disc degeneration, lumbosacral region without mention of lumbar back pain or lower extremity pain; M48.07 Spinal stenosis, lumbosacral region
CPT/HCPCS: 72148